=== PATIENT | male | born 1940 | race Caucasian/White ===

== ENCOUNTER 2020-05-28 12:57 | Outpatient (CLI) | payer MEDICARE, OTHER, SELFPAY ==
--- NOTE | 2020-05-28 13:30 | USCV_ITS ---
Nathan Malloy Age: 80 Gender: M : 1940 Exam Date: 05/28/2020 13:13 Ordering Phys: Bolivar Hadley APN Technologist: Dimitrios Lara [place]am Location[place] [facility] [place] Indication: CHECK FOR DVT PROCEDURES: Venous duplex imaging was performed in only the right lower extremity. The following venous structures were evaluated: common femoral vein, profunda vein, proximal portion of the greater saphenous vein, superficial femoral vein, and the popliteal vein. In addition, the posterior tibial and peroneal trunk were evaluated. Serial compression, augmentation maneuvers, and spectral Doppler flow evaluation were performed. FINDINGS: Right DVT noted in the popliteal and peroneal veins. All other veins appear free of thrombus at this time. CONCLUSIONS Acute occlusive DVT in the right popliteal and peroneal veins. INTERVENTIONAL NEURORADIOLOGIST CONTACTED GABY WILEY BEFORE PATIENT WAS RELEASED. Adriano Sanchez MD (Electronically Signed) Final Date: 28 May 2020 14:43 S
== END 2020-05-28 12:58 | disposition home or self-care (01) ==
LOC: RAD 13:05
PROVIDERS: PCP Family Medicine; Visit Provider Nurse Practitioner Family
DX: M79.89 Other specified soft tissue disorders (principal); I82.431 Acute embolism and thrombosis of right popliteal vein; I82.451 Acute embolism and thrombosis of right peroneal vein
CPT/HCPCS: 93971

== ENCOUNTER → 2020-11-28 09:58 | Outpatient (BNVA) | payer MEDICARE, OTHER, SELFPAY | PROVIDERS: PCP Family Medicine; Visit Provider Emergency Medicine | DX: Z20.822 Contact with and (suspected) exposure to COVID-19 (principal); J06.9 Acute upper respiratory infection, unspecified | CPT/HCPCS: 87635 ==